=== PATIENT | male | born 1965 | race Caucasian/White ===

== ENCOUNTER 2017-01-07 05:34 | Emergency (ER) | payer SELFPAY ==
[2017-01-07] MEDS ORDERED: NS 1,000 ML IV ONE ×3 (05:51→06:59)
[2017-01-07] MEDS ORDERED: ONDANSETRON 4 MG/2 ML VIAL IVP ONE (05:51)
--- NOTE | 2017-01-07 05:51 | EDPHY ---
H & P Stated Complaint: dizzy HPI/ROS: HPI CHIEF COMPLAINT: Dizziness nausea vomiting HISTORY OF PRESENT ILLNESS: This patient is a 51-year-old male, otherwise healthy does not take any daily medications, he has never had dizziness or vertigo symptoms before. He presents to the emergency room with acute onset of dizziness that he states woke up around 4:35 a.m.. He had to crawl to the bathroom due to worsening dizziness. He had multiple episodes of nausea with vomiting. He denies any chest pain, denies double vision, denies focal numbness or tingling, denies weakness, denies neck pain. Denies headache. This was sudden in onset. States he think it may have woke him from sleep. The symptoms have persisted. Every time he goes to move his head open his eyes the dizziness gets worse. He describes as room spinning. He has chronic tinnitus. No history of this. Past Medical History: Denies medical history Past Surgical History: Denies surgical history Social History: Denies daily use of tobacco however endorses occasional marijuana use and had 1 alcoholic beverage last night. Family History: Noncontributory ROS REVIEW OF SYSTEMS: A comprehensive 10 point review of systems is otherwise negative aside from elements mentioned in the history of present illness. Exam Constitutional appears well nontoxic, triage nursing summary reviewed, vital signs reviewed, awake/alert. Eyes normal conjunctivae and sclera, EOMI, PERRLA. No nystagmus notice. With head movement he gets worsening dizziness. HENT normal inspection, atraumatic, moist mucus membranes, no epistaxis, neck supple/ no meningismus, no raccoon eyes. Respiratory clear to auscultation bilaterally, normal breath sounds, no respiratory distress, no wheezing. Cardiovascular rate normal, regular rhythm, no murmur, no edema, distal pulses normal. Gastrointestinal soft, non-tender, no rebound, no guarding, normal bowel sounds, no distension, no pulsatile mass. Genitourinary no CVA tenderness. Musculoskeletal no midline vertebral tenderness, full range of motion, no calf swelling, no tenderness of extremities, no meningismus, good pulses, neurovascularly intact. Skin pink, warm, & dry, no rash, skin atraumatic. Neurologic awake, alert and oriented x 3, AAOx3, moves all 4 extremities equally, motor intact, sensory intact, CN II-XII intact, normal cerebellar, normal vision, normal speech. Psychiatric normal mood/affect. Heme/Lymph/Immune no lymphadenopathy. Differential Diagnosis: Includes but is not limited to in a particular order acute benign positional vertigo, Meniere's disease, posterior circulation stroke , electrolyte disturbance, dehydration Medical Decision Making: Plan for this patient IV establishment with IV fluid bolus, Zofran for nausea, Valium for dizziness, meclizine for dizziness, EKG, cardiac marker, CT head without contrast. And re-evaluate. Re-evaluation: 0635AM: Core temp 34 degrees. Being actively warm with a bear hugger. Unclear etiology at this time of his hypothermia. 0641AM: EKG interpretation by me on record in [employer] system. Impression time of EKG 6:39 a.m., this is sinus rhythm sinus bradycardia rate of 48 early Cora pulp pattern present. Otherwise no signs of acute ischemia. 0700AM: On re-evaluation the patient does state he feels slightly better he received 2 L IV fluid normal saline bolus, IV Valium 5 mg and meclizine [address] scan of his head is unremarkable for acute bleed or stroke. His EKG shows a Cora pulp pattern. No acute ischemia. Troponin negative. Given that he has ongoing vertigo vertiginous symptoms with room spinning with head movement in eye opening slightly improved with medications here I feel that he needs time in the hospital as he is unable to ambulate unable to fully set up. I do not feel that he needs angiogram his head neck at this time. He has no other focal neuro deficits. Plan will be for admission for vertigo. I spoke with Dr. Loera who accepts the admission. I recommend admission for this patient due to ongoing dizziness. Unable to lift head off the bed. Doubt room spinning. Needs more time for observation IV fluids and treatment of most likely benign positional vertigo. CT scan of the head without IV contrast The results of the study are negative for acute disease process The study was read by Dr. Gomez I viewed the images myself on the PACS system. ED x-ray chest one view: Negative for acute cardiopulmonary disease. Source: Patient - Personal History Current Tetanus/Diphtheria Vaccine: Unsure Current Tetanus Diphtheria and Acellular Pertussis (TDAP): Unsure - Medical/Surgical History Hx Asthma: No Hx Chronic Respiratory Disease: No Hx Diabetes: No Hx Cardiac Disease: No Hx Renal Disease: No Hx Cirrhosis: No Hx Alcoholism: No Hx HIV/AIDS: No Hx Splenectomy or Spleen Trauma: No Other PMH: Left knee surgery - Social History Smoking Status: Never smoked Constitutional: Initial Vital Signs Temperature (C) 34.2 C L 01/07/17 05:40 Heart Rate 55 L 01/07/17 05:40 Respiratory Rate 18 01/07/17 05:40 Blood Pressure 115/72 01/07/17 05:40 O2 Sat (%) 99 01/07/17 05:40 O2 Delivery Mode Room Air O2 (L/minute) 2 Allergies/Adverse Reactions: No Known Allergies Allergy (Verified 01/07/17 05:42) Home Medications: Medication Instructions Recorded NK [No Known Home Meds] 01/07/17 Medical Decision Making - Diagnostics Imaging Results: Imaging Impressions Head CT 01/07/17 05:57 Impression: 1. Normal CT brain without contrast. 2. Consider MRI of the brain without and with contrast enhancement, if there is continued clinical concern. Findings and recommendations discussed with emergency department physician, Carlos Stewart MD at 0650 hours on January 07, 2017. Final report concurs with initial preliminary interpretation. - Data Points Laboratory Results: Laboratory Results 01/07/17 05:50 01/07/17 05:50 01/07/17 05:50 Cortisol AM Sample 28.0 ug/dL H ug/dL (4.5-22.7) Medications Given: Discontinued Medications Diazepam (Valium Injection) 5 mg IVP EDNOW ONE Stop: 01/07/17 05:58 Last Admin: 01/07/17 06:03 Dose: 5 mg Sodium Chloride (Ns) 1,000 mls @ 0 mls/hr IV EDNOW ONE; Wide Open PRN Reason: Protocol Stop: 01/07/17 05:52 Last Admin: 01/07/17 06:01 Dose: 1,000 mls Sodium Chloride (Ns) 1,000 mls @ 0 mls/hr IV ONCE ONE PRN Reason: Wide Open Stop: 01/07/17 05:58 Last Admin: 01/07/17 06:01 Dose: 1,000 mls Sodium Chloride (Ns) 1,000 mls @ 0 mls/hr IV ONCE ONE; Wide Open PRN Reason: Protocol Stop: 01/07/17 07:00 Last Admin: 01/07/17 07:00 Dose: 1,000 mls Meclizine HCl (Meclizine Hcl) 25 mg PO EDNOW ONE Stop: 01/07/17 05:53 Last Admin: 01/07/17 06:46 Dose: 25 mg Ondansetron HCl (Zofran) 4 mg IVP EDNOW ONE Stop: 01/07/17 05:52 Last Admin: 01/07/17 06:01 Dose: 4 mg Departure - Departure Disposition: Against Medical Advice Clinical Impression: Vertigo Condition: Good Additional Instructions: He left AMA, left ER without speaking with anyone, took out his own IV. I called him and he said he was 'tired of waiting...felt fine...would deal with paperwork later.' Referrals: NONE *PRIMARY CARE P,. [Primary Care Provider] - As per Instructions
[2017-01-07] MEDS ORDERED: MECLIZINE HCL 25 MG TAB PO ONE (05:52)
[2017-01-07] MEDS ORDERED: DIAZEPAM 10 MG/2 ML SYR IVP ONE (05:57)
[2017-01-07 06:17] LABS: % IMMATURE GRANULYOCYTES 0.3 % (0.0-1.1); ABSOLUTE IMMATURE GRANULOCYTES 0.02 10^3/uL (0.00-0.10); ADD DIFF? NO; ADD MORPH? NO; ADD SCAN? NO; ATYPICAL LYMPHOCYTE FLAG 20 (0-99); FRAGMENT RBC FLAG 0 (0-99); HEMATOCRIT 40.9 % (40.0-51.0); LEFT SHIFT FLG 0 (0-99); LIPEMIA HEMOLYSIS FLAG 90 (0-99); MEAN CELL HEMOGLOBIN 30.4 pg (27.9-34.1); MEAN CELL HEMOGLOBIN CONCENTR. 34.2 g/dL (32.4-36.7); MEAN CELL VOLUME 88.9 fL (81.5-99.8); MEAN PLATELET VOLUME 10.3 fL (8.7-11.7); PLATELET CLUMPS FLAG 0 (0-99); PLATELET COUNT 172 10^3/uL (150-400); RED CELL DISTRIBUTION WIDTH 12.9 % (11.5-15.2)
[2017-01-07 06:34] LABS: ANION GAP 13 mEq/L (8-16); CALCIUM 9.4 mg/dL (8.5-10.4); CARBON DIOXIDE 18 mEq/l (22-31); CREATININE 0.8 mg/dL (0.7-1.3); GLOMERULAR FILTRATION RATE > 60; POTASSIUM 3.8 mEq/L (3.5-5.2)
--- NOTE | 2017-01-07 06:41 | CPEKG ---
Heart Rate: 48 RR Interval: 1250 QRSD Interval: 106 QT Interval: 560 QTC Interval: 501 QRS [place]: 69 T Wave [place]: 50 EKG Severity - ABNORMAL ECG - EKG Impression: ATRIAL FIBRILLATION EKG Impression: ST ELEV, PROBABLE NORMAL EARLY REPOL PATTERN EKG Impression: PROLONGED QT INTERVAL Electronically Signed By: Carlos Stewart 07-Jan-2017 06:45:14
[2017-01-07 06:44] LABS: CHLORIDE 106 mEq/L (97-110); ETHANOL SERUM < 10 mg/dL (0-10); GLUCOSE 155 mg/dL (70-100); SODIUM 137 mEq/L (134-144)
[2017-01-07 06:45] LABS: TROPONIN I < 0.012 ng/mL (0.000-0.034)
[2017-01-07] MEDS ORDERED: ONDANSETRON DISINTEGRATING 4 MG TAB PO PRN (07:04)
[2017-01-07] MEDS ORDERED: ACETAMINOPHEN 325 MG TAB PO PRN (07:04)
[2017-01-07] MEDS ORDERED: ONDANSETRON 4 MG/2 ML VIAL IVP PRN (07:04)
[2017-01-07 07:05] LABS: CK-MB INTERPRETATION NEGATIVE (NEGATIVE); CREATINE KINASE-MB FRACTION 2.46 ng/mL (0.00-3.19)
[2017-01-07] MEDS ORDERED: LORazepam 2 MG/ML INJ IVP PRN (07:46)
[2017-01-07] MEDS ORDERED: MECLIZINE HCL 25 MG TAB PO PRN (07:46)
[2017-01-07] MEDS ORDERED: NS 1,000 ML IV SCH (08:00)
--- NOTE | 2017-01-07 08:35 | GHP ---
[f rep st] HISTORY AND PHYSICAL DATE OF ADMISSION: 01/07/2017 CHIEF COMPLAINT: Vertigo, hypothermia. HISTORY OF PRESENT ILLNESS: A 51-year-old male with no past medical history, presents to the ER with acute onset of vertigo that awoke him at 4:35 this morning. He had to crawl to the bathroom due to worsening dizziness. He had multiple episodes of nausea and vomiting with a metallic taste. He denies chest pain, double vision, numbness, or focal weakness. No headache. Symptoms get worse if he moves his head side to side. He denies fevers, chills, or sweats. No diarrhea. No urinary symptoms. He rode his bike 20 miles earlier this afternoon which is normal for him, ate dinner without issue. Smokes a gram of marijuana a day. Had 1 beer today. Denies other illicits. In the emergency room, temperature was noted to be 34.2 and bradycardic to the 40s. He did have some tingling in his hands and fingers. REVIEW OF SYSTEMS: I completed a 10-point review of systems, negative, except as noted in HPI. PAST MEDICAL HISTORY: None. PAST SURGICAL HISTORY: None. SOCIAL HISTORY: Lives here with roommates. Smokes up to 2 grams of weed daily. Occasional alcohol. No other illicits. Has a daughter. FAMILY HISTORY: No strokes. MEDICATIONS: Advil p.r.n. ALLERGIES: No known drug allergies. PHYSICAL EXAM: VITAL SIGNS: Temperature 34.2, now 35.6. Blood pressure 118/ 77. Heart rate 44, now 60. 99% on 2 L. GENERAL: Patient is lying in bed in the dark with his eyes closed. No acute distress. HEENT: PERRLA. EOMI. When opens eyes, feels the room spinning; thus, closes quickly. Oropharynx clear. HEART: Bradycardic. No murmurs, gallops, or rubs. LUNGS: Clear to auscultation anteriorly. ABDOMEN: Soft, nontender, nondistended. Positive bowel sounds. : No suprapubic tenderness. MUSCULOSKELETAL: 5/5 upper, lower extremity strength. NEURO: 2 through 12 intact. Normal [id number]. Normal rapid alternating hand movements. Unable to assess gait, as patient is too dizzy with even opening his eyes. PSYCH: Alert and oriented x3, groggy. LABORATORY DATA: WBC 6, hemoglobin 14, hematocrit 40, platelets 172. Sodium 137, potassium 3.8, chloride 106, carbon dioxide 18, creatinine 0.8, calcium 9.4, glucose 155. Troponin less than 0.012. TSH is 1.5. Cortisol is pending. CT head: Negative for acute process. EKG, is personally reviewed by me: Bradycardic, early re-pole changes. Chest x-ray, personally reviewed by me: Clear. ASSESSMENT AND PLAN: 1. Vertigo: Appears to be benign paroxysmal positional vertigo with worsening symptoms with movement. Had normal cerebellar testing. Treat symptomatically with Valium, meclizine, intravenous fluids. If symptoms persist, would consider an MRI of brain. 2. Hypothermia, unclear: Patient denies infectious symptoms. Temperature is improving with Carlos Hugger. TSH is within normal. Check a cortisol, UA, and utox. 3. Metabolic acidosis: Might be secondary to dehydration. Will hydrate. Repeat labs. 4. Deep vein thrombosis prophylaxis: Low risk. 5. Disposition: Patient warrants observation admission, given acute vertigo and hypothermia. Requires neuro checks and further evaluation with possible MRI. /[id number]/MODL MTDD
[2017-01-07 09:20] VITALS: BP 111/54; PULSE 62; RESP 15; TEMP 97.7; O2SAT 95
[2017-01-07 09:21] LABS: COLOR YELLOW; LEUKOCYTE ESTERASE,URINE NEGATIVE (NEGATIVE); NITRITE,URINE NEGATIVE (NEGATIVE)
[2017-01-07 09:59] LABS: PHENCYCLIDINE URINE BCH < 6 ng/ml (NEGATIVE); PHENCYCLIDINE URINE BCH NEGATIVE (NEGATIVE)
[2017-01-07 10:24] LABS: TETRAHYDROCANNABINOL URINE > 800 ng/mL (NEGATIVE)
--- NOTE | 2017-01-09 21:13 | GDS ---
[f rep st] DISCHARGE SUMMARY (The patient left against medical advice from the Emergency Department). H and P please see previous ly dictated note by Dr. Loera. HOSPITAL COURSE: The patient came to the Emergency Department because of acute onset of dizziness, n ausea, and vomiting. He was evaluated in the Emergency Department with labs and head CT, which were essentially normal and negative for an acute process. He remains symptomatic despite medications and IV fluids, and Dr. Loera evaluated him for admission. Admission diagnoses included vertigo and hyp othermia. As the patient was transitioned in the Emergency Department and awaiting a bed on the flo r, he reported to the staff that his symptoms had improved and he no longer desired admission. I was notified by the Emergency Department of the patient's intention, and came down to re-evaluate and di scuss this with him. Upon my arrival in the Emergency Department, the patient was no longer in his r oom, and the staff was not aware of his location. I phoned the patient on his cell phone and asked h im where he was, to which he replied "I am at home. I was tired of waiting." I noted to him that he left with his IV intact, and he said that he removed that himself. He said he had no symptoms and w as fine at home. I explained to him that if at any time he had a return of symptoms that he should c ome to the Emergency Department immediately for re-evaluation. Otherwise, recommend that he follow u p with his primary care provider, to which he replied he would consider that. Again, please note that the patient left against medical advice as he was in the process of admission , and did not speak to any providers before he walked out of the Emergency Department. /[id number]/MODL
== END 2017-01-07 10:48 | disposition left against medical advice (07) ==
LOC: INTOOBSV 07:09 → UNDOADMOB 07:09
DX: R42 Dizziness and giddiness (principal); E86.9 Volume depletion, unspecified
CPT/HCPCS: 80305; 80307; 96374; G0480; J2405